=== PATIENT | female | born 1995 | race Caucasian/White ===

== ENCOUNTER → 2018-01-05 19:14 | Outpatient (CLI) | payer MEDICAID, SELFPAY ==
[2018-01-05 22:27] LABS: Chlamydia Trachomatis by PCR Negative (Negative); Neisserai gonorrhoeae by PCR Negative (Negative); Probe Check PASS; Sample Adequacy Control PASS; Specimen Processing Control PASS
[2018-01-13 12:41] LABS: HPV APTIMA, High Risk Positive (Negative); HPV Reflexed? YES, CHARGE PATIENT
== END ==
PROVIDERS: Visit Provider Nurse Practitioner Women's Health
DX: Z34.90 Encounter for supervision of normal pregnancy, unspecified, unspecified trimester (principal); Z12.4 Encounter for screening for malignant neoplasm of cervix; Z3A.00 Weeks of gestation of pregnancy not specified
CPT/HCPCS: 87491; 87591; 87624; 88175; G0145

== ENCOUNTER → 2018-01-06 16:02 | Outpatient (CLI) | payer MEDICAID, SELFPAY ==
--- NOTE | 2018-01-06 16:05 | US_ITS ---
STUDY: FIRST TRIMESTER OBSTETRICAL ULTRASOUND REASON FOR EXAM: Female, 22 years old. Evaluate dates and viability LMP: 11/13/2017 TECHNIQUE: Transvaginal PRIOR ULTRASOUND: None. FINDINGS: There is visualization of a single gestational sac in a normal intrauterine position. The mean sac diameter (MSD) measures 2.23 cm, indicating an estimated gestational age (EGA) of 7 weeks, 2 days. The gestational sac shape is within normal limits. There is a visualized yolk sac. The yolk sac measures 3.7 mm. The placenta is non-visualized. There is visualization of a live embryo. The crown-rump length (CRL) measures 1.04 cm, indicating an estimated gestational age (EGA) of 7 weeks, 1 days. There is demonstrated cardiac activity with a heart rate of 134 bpm. The estimated gestation age (EGA) by LMP is 7 weeks, 5 days. The estimated date of delivery (AJ) by LMP is 08/20/2018. The estimated gestation age (EGA) by US is 7 weeks, 2 days. The estimated date of delivery (AJ) by US is 08/23/2018. The uterus measures 8.7 x 5.7 x 5.3 cm. There is no demonstrated uterine fibroid. There is an anechoic avascular focus lateral to the gestational sac measuring 7 x 8 mm consistent with a small subchorionic hemorrhage. The cervix is closed. The right ovary measures 3.6 x 2.8 x 1.6 cm. There is a 1.8 x 2.2 x 1.1 cm right ovarian cyst. There is no visualized right adnexal mass or complex lesion. The left ovary measures 3.1 x 2.3 x 2.1 cm. There is no left ovarian cyst. There is no visualized left adnexal mass or complex lesion. There is no fluid in the cul de sac. US/Transvaginal w/Preg US IMPRESSION: Single viable intrauterine approximately 7 weeks 1 day gestational age by crown-rump length measurement. There is an anechoic avascular focus lateral to the gestational sac measuring 7 x 8 mm consistent with a small subchorionic hemorrhage. There is a 1.8 x 2.2 x 1.1 cm right ovarian cyst. There is no fluid in the cul-de-sac. Electronically Signed: Sunny Ivy MD at 17:26 EST , Service support ,
== END ==
PROVIDERS: Visit Provider Nurse Practitioner Women's Health
DX: Z34.90 Encounter for supervision of normal pregnancy, unspecified, unspecified trimester (principal); Z3A.00 Weeks of gestation of pregnancy not specified
CPT/HCPCS: 76817

== ENCOUNTER → 2018-01-29 16:00 | Outpatient (CLI) | payer MEDICAID, SELFPAY ==
[2018-01-29 16:55] LABS: Absolute Lymphocyte Count 2.17 X10^3/ul (0.83-4.51); Absolute Neutrophil Count 7.3 X10^3/uL (2.0-7.7); Basophil# 0.03 X10^3/uL; Basophil% 0.3 % (0-1); Hematocrit 39.4 % (37-47); Hemoglobin 13.2 g/dl (12.0-15.0); Lymphocyte # 2.17 X10^3/ul (4.0); Lymphocyte % 21.1 % (19-41); Mean Corp Hgb Conc 33.5 g/gl (32-36); Mean Corpuscular Hgb 29.1 pg (27.0-32.0); Monocyte# 0.69 X10^3/uL; Monocyte% 6.7 % (0-10); Neutrophil # 7.26 X10^3/uL (2.7-7.7); Neutrophil % 70.6 % (47-70); Platelet Count 268 K/mm3 (150-450); RBC Distribution Width CV 13.3 % (11.6-14.6); RBC Distribution Width SD 41.4 fl (35.1-43.9); Red Blood Count 4.53 M/mm3 (4.2-5.4); White Blood Count 10.3 K/mm3 (4.4-11.0)
[2018-01-29 16:56] LABS: POSITIVE COUNT NO; POSITIVE DIFFERENTIAL NO; POSITIVE MORPHOLOGY NO
[2018-01-30 03:11] LABS: Rapid Plasmin Reagin (RPR) NONREACTIVE (NONREACTIVE)
[2018-01-30 09:44] LABS: HIV - WCH Non-Reactive (Nonreactive); Rubella IgG 28.4 IU/mL
[2018-01-31 08:35] LABS: HEPATITIS B SURFACE AG Negative (Negative)
== END ==
PROVIDERS: Nurse Practitioner Women's Health; Visit Provider Obstetrics & Gynecology
DX: Z34.90 Encounter for supervision of normal pregnancy, unspecified, unspecified trimester (principal); Z3A.00 Weeks of gestation of pregnancy not specified
CPT/HCPCS: 36415; 85025; 86592; 86703; 86762; 86850; 86900; 87086; 87340

== ENCOUNTER → 2018-01-29 18:01 | Outpatient (CLI) | payer MEDICAID, SELFPAY | PROVIDERS: Visit Provider Obstetrics & Gynecology | DX: Z34.90 Encounter for supervision of normal pregnancy, unspecified, unspecified trimester (principal); Z3A.00 Weeks of gestation of pregnancy not specified | CPT/HCPCS: 87086 ==

== ENCOUNTER 2018-02-11 19:12 | Emergency (ER) | payer MEDICAID, SELFPAY ==
[2018-02-11 19:12] VITALS: BP 124/75; PULSE 105; RESP 16; TEMP 36.4; O2SAT 100; BMI 27.3
--- NOTE | 2018-02-11 19:26 | ED.VISSUMM ---
- ER Visit Summary Date of Service: 02/11/18 Chief Complaint: [Irwin right forearm] History of Present Illness: The patient is a 22 F [presents to the emergency department with irwin to the right forearm that occurred today while at work. 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 Patient is right-hand dominant. Patient does not want to claim this under workman's comp. Patient complains of pain.] Physical Examination: [Right forearm-there are several small first and second-degree irwin to the volar aspect of the right wrist and forearm. Patient neurovascular intact distally. Patient has normal range of motion and sensation.] Test Results: [None indicated] Emergency Department Course and Treatment: [Patient will have a clean dressing applied.] Treatment Plan: [Patient will be given a prescription for 12 Gon[place] for pain.] Disposition: [Discharged home in stable condition] Impression: [First and second-degree irwin right forearm] This note was generated with [employer] dictation software. It may contain incorrect words, spelling, and punctuation that were not noted in review of the chart prior to signing ED Disposition - Plan for ED Patient: Chief Complaint: Burn Referrals: Care Physician,No Primary [Primary Care Provider] -
--- NOTE | 2018-02-11 19:27 | ED.DEP ---
ED Disposition - Plan for ED Patient: Chief Complaint: Burn Instructions: ED Burn Thermal D 1st 2nd Dressing Prescriptions: Hydrocodone Bitart/Apap 5-325 [[place] 5/325] 1 - 2 tab PO Q4H PRN PRN 3 Days #12 tab PRN Reason: Pain Referrals: Care Physician,No Primary [Primary Care Provider] - Sherman Franklin MD [STAFF PHYSICIAN] - 5-7 Days
--- NOTE | 2018-02-11 19:45 | ED.RN ---
PER DR. BURRELL VERBAL ORDER TO APPLY BACITRACIN TO PATIENT'S RIGHT ARM BURN, ALONG WITH A TELFA AND ROLLED GAUZE. DONE BY THIS NURSE ALONG WITH NURSING INSTRUCTIONS ON BURN CARE GIVEN.
[2018-02-11 19:46] VITALS: RESP 18
== END 2018-02-11 19:46 | disposition home or self-care (01) ==
LOC: ED 19:37
PROVIDERS: Emergency Provider Emergency Medicine
DX: T23.271A Burn of second degree of right wrist, initial encounter (principal); T22.211A Burn of second degree of right forearm, initial encounter; X10.2XXA Contact with fats and cooking oils, initial encounter; Y93.89 Activity, other specified; Y92.89 Other specified places as the place of occurrence of the external cause; Y99.0 Civilian activity done for income or pay; Z72.0 Tobacco use; Z79.899 Other long term (current) drug therapy
CPT/HCPCS: 99282

== ENCOUNTER → 2018-02-13 10:40 | Outpatient (CLI) | payer MEDICAID, SELFPAY | PROVIDERS: Visit Provider Medical Genetics Clinical Genetics (M.D.) | DX: Z36.1 Encounter for antenatal screening for raised alphafetoprotein level (principal) ==

== ENCOUNTER 2018-03-22 00:44 | Emergency (ER) | payer MEDICAID, SELFPAY ==
[2018-03-22 00:47] VITALS: BP 113/60; PULSE 81; RESP 16; TEMP 36.8; O2SAT 97; BMI 29.0
--- NOTE | 2018-03-22 01:05 | ED.VISSUMM ---
- ER Visit Summary Date of Service: 03/22/18 Chief Complaint: Fell down one flight of steps History of Present Illness: The patient is a 22 F today 18 weeks . Was going down the basement and slipped on a flight of steps on her back. No LOC. Denies hitting her abdomen. Denies any vaginal bleeding. Her ABO Rh type is A+. Her due date is August 23 and she is Ab0. She sees Dr. Dejesus of GERONTOLOGY AIDE. Physical Examination: Appearing young female. Vital signs are stable afebrile. H EENT exam unremarkable atraumatic. She has no hematoma to her scalp there is no facial trauma. Pupils round reactive light. C-spine nontender trachea midline. Full range of motion to her neck. Lungs clear to auscultation bilaterally. Heart regular rhythm no murmur. Abdomen gravid uterus consistent with dates nontender without signs of trauma. No contusions no bruising or abrasions. Pelvic girdle intact. She is moving all 4 extremities. They are nontender without deformity. Neurologically she is awake and alert with no focal motor deficits. GCS of 15. Back exam has diffuse tenderness. There is no ecchymosis or bruising. She is tender over the lumbar and paralumbar parathoracic soft tissues. It is not specifically localizing. Test Results: heart tones are positive per nursing. Prior labs showing blood type is A+. Emergency Department Course and Treatment: I spoke to Dr. Ren Tate and the patient will be discharged home to follow-up with her. Treatment Plan: She will be treated with Tylenol here. Ice to all sore areas at home. Tylenol for pain. Patient does not need monitoring at this time Disposition: Discharge Impression: Acute fall down steps Back contusion 18 weeks This note was generated with [employer] dictation software. It may contain incorrect words, spelling, and punctuation that were not noted in review of the chart prior to signing ED Disposition - Plan for ED Patient: Chief Complaint: Fall Referrals: Care Physician,No Primary [Primary Care Provider] -
--- NOTE | 2018-03-22 01:09 | ED.DCSUM_ITS ---
- ER Visit Summary Date of Service: 03/22/18 Chief Complaint: Fell down one flight of steps History of Present Illness: The patient is a 22 F today 18 weeks . Was going down the basement and slipped on a flight of steps on her back. No LOC. Denies hitting her abdomen. Denies any vaginal bleeding. Her ABO Rh type is A+ . Her due date is August 23 and she is Ab0. She sees Dr. Dejesus of WRAPPING CLERK. Physical Examination: Appearing young female. Vital signs are stable afebrile. H EENT exam unremarkable atraumatic. She has no hematoma to her scalp there is no facial trauma. Pupils round reactive light. C-spine nontender trachea midline. Full range of motion to her neck. Lungs clear to auscultation bilaterally. Heart regular rhythm no murmur. Abdomen gravid uterus consistent with dates nontender without signs of trauma. No contusions no bruising or abrasions. Pelvic girdle intact. She is moving all 4 extremities. They are nontender without deformity. Neurologically she is awake and alert with no focal motor deficits. GCS of 15. Back exam has diffuse tenderness. There is no ecchymosis or bruising. She is tender over the lumbar and paralumbar parathoracic soft tissues. It is not specifically localizing. Test Results: heart tones are positive per nursing. Prior labs showing blood type is A+. Emergency Department Course and Treatment: I spoke to Dr. Ren Tate and the patient will be discharged home to follow-up with her. Treatment Plan: She will be treated with Tylenol here. Ice to all sore areas at home. Tylenol for pain. Patient does not need monitoring at this time Disposition: Discharge Impression: Acute fall down steps Back contusion 18 weeks This note was generated with [employer] dictation software. It may contain incorrect words, spelling, and punctuation that were not noted in review of the chart prior to signing ED Disposition - Plan for ED Patient: Chief Complaint: Fall Referrals: Care Physician,No Primary [Primary Care Provider] -
--- NOTE | 2018-03-22 01:09 | ED.DEP ---
ED Disposition - Plan for ED Patient: Disposition: Home or Assisted Living Chief Complaint: Fall Instructions: ED Contusion Back Referrals: Rosalva Novoa MD [STAFF PHYSICIAN] - As Needed Additional Instructions: Ice to all sore areas. Tylenol for pain. Follow-up with Dr. Ren Tate as scheduled.
[2018-03-22 01:25] VITALS: BP 125/88; PULSE 87; RESP 16; O2SAT 97
== END 2018-03-22 01:26 | disposition home or self-care (01) ==
PROVIDERS: Emergency Provider Emergency Medicine
DX: O9A.212 Injury, poisoning and certain other consequences of external causes complicating pregnancy, second trimester (principal); S30.0XXA Contusion of lower back and pelvis, initial encounter; W10.9XXA Fall (on) (from) unspecified stairs and steps, initial encounter; Y93.9 Activity, unspecified; Y92.9 Unspecified place or not applicable; Y99.9 Unspecified external cause status; O99.332 Smoking (tobacco) complicating pregnancy, second trimester; Z3A.18 18 weeks gestation of pregnancy
CPT/HCPCS: 99282

== ENCOUNTER → 2018-03-30 07:57 | Outpatient (CLI) | payer MEDICAID, SELFPAY ==
--- NOTE | 2018-03-30 08:00 | US_ITS ---
STUDY: SECOND AND THIRD TRIMESTER OBSTETRICAL ULTRASOUND REASON FOR EXAM: Female, 23 years old. 2nd trimester complete OB ultrasound with anatomy survey and biometrics. LMP: 11/13/2017. GA (LMP) 19 week 4 day. AJ 08/20/2018. TECHNIQUE: Transabdominal pelvic ultrasound of . PRIOR ULTRASOUND: 01/06/2018. FINDINGS: There is a single intrauterine fetus. The fetus is in a cephalic presentation. There is demonstrated cardiac activity with a heart rate of 160 bpm. There is a normal amniotic fluid volume. The largest amniotic fluid pocket measures 6.95 cm. The amniotic fluid volume. The placenta is anterior, not low-lying There are Grade 1 placental changes. Small venous dye 13 x 12 mm. The cervix measures 3.2 in length. Closed. BIOMETRY: BPD: 4.3: 19 weeks, 1 days HC: 16.5: 19 weeks, 2 days AC: 13.9: 19 weeks, 3 days FL: 3.1: 19 weeks, 4 days CI: 75 FL/BPD: 72 FL/AC: 22 HC/AC: 1.19 age by current US: 19 weeks, 3 days. AJ by current US: 08/21/2018. Estimated weight: 290 grams, +/- 42 grams, 35 %. ANATOMY: Gender: Female Cranium: Normal lateral ventricles. Normal choroid plexus. Normal cerebellum. Normal cisterna magna. Normal face, nose and lips. Chest: Normal 4-chamber heart. The outflow tracts are not visualized. Abdomen/Pelvis: Normal diaphragm. Normal stomach. Normal abdominal wall. Normal cord insertion. Normal 3 vessel cord. Normal kidneys. Normal bladder. Spine: Normal cervical spine. Normal thoracic spine. Normal lumbar spine. Normal sacrum. Extremities: Normal bilateral upper extremities. Normal bilateral lower extremities. US/OB Anatomy Scan IMPRESSION: There is a single live intrauterine gestation with appropriate cardiac activity, normal amniotic fluid volume, with no evidence of placenta previa. Measurements on today's study are concordant with expected dates within 1 day. The anatomic survey is satisfactory, and normal. No acute or maternal abnormality is evident. Electronically Signed: Uriah Zamarripa, at 8:47 EDT Tel , Service support ,
== END ==
PROVIDERS: Visit Provider Nurse Practitioner Women's Health
DX: Z34.90 Encounter for supervision of normal pregnancy, unspecified, unspecified trimester (principal)
CPT/HCPCS: 76805

== ENCOUNTER → 2018-03-31 08:09 | Outpatient (CLI) | payer MEDICAID, SELFPAY | PROVIDERS: Visit Provider Obstetrics & Gynecology | DX: Z36.82 Encounter for antenatal screening for nuchal translucency (principal) | CPT/HCPCS: 36415 ==

== ENCOUNTER → 2018-05-22 12:23 | Outpatient (CLI) | payer MEDICAID, SELFPAY ==
[2018-05-22 12:48] LABS: Absolute Lymphocyte Count 1.75 X10^3/ul (0.83-4.51); Absolute Neutrophil Count 7.7 X10^3/uL (2.0-7.7); Basophil# 0.02 X10^3/uL; Basophil% 0.2 % (0-1); Eosinophil# 0.04 X10^3/uL; Eosinophils% 0.4 % (0-5); Hematocrit 33.7 % (37-47); Hemoglobin 11.4 g/dl (12.0-15.0); Lymphocyte # 1.75 X10^3/ul (4.0); Lymphocyte % 17.5 % (19-41); Mean Corp Hgb Conc 33.8 g/gl (32-36); Mean Corpuscular Hgb 28.9 pg (27.0-32.0); Mean Corpuscular Volume 85.5 fL (81-99); Mean Platelet Vol. 9.7 fl (6.2-12.0); Monocyte# 0.44 X10^3/uL; Monocyte% 4.4 % (0-10); Neutrophil # 7.71 X10^3/uL (2.7-7.7); Neutrophil % 77.2 % (47-70); Platelet Count 230 K/mm3 (150-450); RBC Distribution Width SD 39.9 fl (35.1-43.9); Red Blood Count 3.94 M/mm3 (4.2-5.4)
[2018-05-22 12:49] LABS: POSITIVE COUNT NO; POSITIVE DIFFERENTIAL NO; POSITIVE MORPHOLOGY NO
[2018-05-22 13:01] LABS: Glucose Challenge Gest 1H 50g 127 mg/dL (70-140)
== END ==
PROVIDERS: Visit Provider Obstetrics & Gynecology
DX: Z34.90 Encounter for supervision of normal pregnancy, unspecified, unspecified trimester (principal)
CPT/HCPCS: 36415; 82950; 85025; 86850; 86900

== ENCOUNTER → 2018-07-31 17:01 | Outpatient (CLI) | payer MEDICAID, SELFPAY ==
[2018-07-31 19:04] LABS: Group B Strep DNA By PCR POSITIVE (Negative); Probe Check PASS
[2018-07-31 19:38] LABS: Chlamydia Trachomatis by PCR Negative (Negative); Neisserai gonorrhoeae by PCR Negative (Negative); Probe Check PASS; Sample Adequacy Control PASS; Specimen Processing Control PASS
== END ==
PROVIDERS: Visit Provider Nurse Practitioner Women's Health
DX: Z34.90 Encounter for supervision of normal pregnancy, unspecified, unspecified trimester (principal); Z3A.00 Weeks of gestation of pregnancy not specified
CPT/HCPCS: 87491; 87591; 87653

== ENCOUNTER 2018-08-18 17:10 | Outpatient (CLI) | payer MEDICAID, SELFPAY ==
[2018-08-18 18:20] VITALS: BMI 37.1
[2018-08-18 18:50] LABS: Protein, Urine (Random) 69.7 mg/dL (<11.9); Protein:Creat Ratio 1130 mg/g CRE (0-200)
[2018-08-18] MEDS: Nalbuphine 10 MG/ML Ampul IM (20:31)
[2018-08-18 20:35] LABS: Hematocrit 35.3 % (37-47); Hemoglobin 11.7 g/dl (12.0-15.0); Mean Corp Hgb Conc 33.1 g/gl (32-36); Mean Corpuscular Hgb 27.1 pg (27.0-32.0); Mean Corpuscular Volume 81.7 fL (81-99); Platelet Count 205 K/mm3 (150-450); RBC Distribution Width CV 14.9 % (11.6-14.6); RBC Distribution Width SD 43.4 fl (35.1-43.9); Red Blood Count 4.32 M/mm3 (4.2-5.4); White Blood Count 13.8 K/mm3 (4.4-11.0)
[2018-08-18 20:41] LABS: International Normalized Ratio 0.9; Partial Thromboplast Time 28.5 Seconds (24.1-36.2); Prothrombin Time (Protime)PT. 12.4 SECONDS (11.7-14.9); Scan Indicated on CBC? Y/N NO
[2018-08-18 20:50] LABS: AST(SGOT) 11 U/L (15-37); Alanine Aminotransfer ALT/SGPT 12 U/L (13-56); Creatinine, Serum 0.57 mg/dL (0.55-1.02); EST Glomerular Filtration Rate 140 mL/min (>60); Est Glom Filt Rate - Afr Amer 169 mL/min (>60)
[2018-08-18 21:12] LABS: LDH 169 U/L (84-246)
--- NOTE | 2018-08-19 02:46 | OB.TRI.NOTE ---
- Problem List (1) False labor Status: Acute History of Present Illness Date of Service: 08/18/18 Was patient seen by the physician?: No Reason For Visit: R/O LABOR Date of Service: 08/18/18 History of Present Illness: co ctx Allergies No Known Allergies Allergy (Verified 08/18/18 08:17) - Pertinent Past Medical History Medical History: Past Medical History (Last Reviewed 08/18/18 @ 08:17 by Ronit Morrison) HSV (herpes simplex virus) infection Surgical History: Past Surgical History (Last Reviewed 08/10/18 @ 11:08 by Crystal Martinez) History of tonsillectomy NST - FHR Rate Baby A Baseline: 120 Variability:: Moderate Accelerations:: 15 x 15 Decelerations:: None NST Reactive:: Yes FHR Category:: Category I Uterine Activity:: q2-5 Impression/Plan 3 cm no cervical change after 4 hours, plan dc home fu the end of the week. reactive nst
== END 2018-08-18 22:40 | disposition home or self-care (01) ==
LOC: WPOUT 17:30 → WP 17:31
PROVIDERS: Referring Provider Obstetrics & Gynecology; Visit Provider Obstetrics & Gynecology
DX: O47.9 False labor, unspecified (principal); O98.519 Other viral diseases complicating pregnancy, unspecified trimester; B00.9 Herpesviral infection, unspecified; Z3A.00 Weeks of gestation of pregnancy not specified
CPT/HCPCS: 36415; 59025; 59050; 82565; 82570; 83615; 84156; 84450; 84460; 84550; 85027; 85610; 85730; 87086; 96372; 99218; G0378

== ENCOUNTER 2018-08-19 00:10 | Inpatient (IN) | payer MEDICAID, SELFPAY ==
[2018-08-19 00:29] VITALS: BMI 36.6
[2018-08-19] MEDS: Lactated Ringers 1,000 ML 50 ML IV (00:45)
[2018-08-19 00:54] LABS: Hematocrit 36.2 % (37-47); Hemoglobin 12.1 g/dl (12.0-15.0); Mean Corp Hgb Conc 33.4 g/gl (32-36); Mean Corpuscular Volume 80.8 fL (81-99); Mean Platelet Vol. 11.1 fl (6.2-12.0); Platelet Count 219 K/mm3 (150-450); RBC Distribution Width CV 14.9 % (11.6-14.6); RBC Distribution Width SD 43.2 fl (35.1-43.9); Red Blood Count 4.48 M/mm3 (4.2-5.4); White Blood Count 15.3 K/mm3 (4.4-11.0)
[2018-08-19 00:55] LABS: Scan Indicated on CBC? Y/N NO
[2018-08-19] MEDS: morphine 10 MG/ML Syringe 6 MG IV (01:47)
[2018-08-19] MEDS: Oxytocin 30 units/NS 500 ml 30 UNITS/500 ML IV.SOLN 334 UNITS IV (01:50)
[2018-08-19] MEDS: Oxytocin 30 units/NS 500 ml 30 UNITS/500 ML IV.SOLN 167 UNITS IV (02:20)
--- NOTE | 2018-08-19 02:32 | HP.PCM_ITS ---
- Problem List (1) GBS (group B Streptococcus carrier), +RV culture, currently Status: Acute Comment: PCN in labor (2) Status: Acute Qualifiers: Comment: (3) Contraception management Status: Acute Qualifiers: Comment: Mirena IUD PP (4) Abnormal Pap smear of cervix Status: Acute Qualifiers: Comment: Repeat 6 week postpartem (5) screening encounter Status: Acute Comment: NT done 02/13/18 (6) Tobacco use Status: Acute Comment: Enc to quit (7) Genital herpes Status: Acute Qualifiers: Comment: Plan suppressive therapy 36 weeks acycliovir (8) Supervision of normal Status: Acute Qualifiers: Comment: PRR AJ 08/23/18 Girl Angelika Luis History Date of Admission: 08/19/18 Final AJ: 08/24/18 Gestational age: 39 Weeks and 2 Days History of this : This is a 23 year-old, , at 39 weeks gestational age presents IAL delivered precipitously. Medical History: Medical History (Last Reviewed 08/18/18 @ 08:17 by Ronit Morrison) HSV (herpes simplex virus) infection B00.9 Surgical History: Surgical History (Last Reviewed 08/10/18 @ 11:08 by Crystal Martinez) History of tonsillectomy Z98.890, Z90.89 Allergies No Known Allergies Allergy (Verified 08/18/18 08:17) Home Medications: Home Medications vitamin,calcium,shidatag-rubt-jnbas acid tablet 1 tab PO QDAY 01/05/18 Ranitidine HCl [Acid Control] 150 mg PO BID 08/19/18 Valacyclovir HCl [Valacyclovir] 500 mg PO DAILY 08/19/18 Smoking Status: Current every day smoker History Past Pregnancies: Past Pregnancies Delivery Date Name GA/Weeks Outcome Route Weight Gender Labor Length Anesthesia Delivery Location Provider FOB Labs: Mom's Labs & Results 08/19/18 08/19/18 00:44 00:44 WBC 15.3 H RBC 4.48 Hgb 12.1 Hct 36.2 L MCV 80.8 L MCH 27.0 MCHC 33.4 RDW 14.9 H RDW Differential 43.2 Plt Count 219 MPV 11.1 Blood Type A POSITIVE Antibody Screen NEGATIVE Course Did the patient receive Yes care? Labs Blood Type: A RH: POSITIVE RPR/VDRL/Syphilis Nonreactive Rubella status Immune HbSAg Negative Date Done: 01/29/18 Chlamydia Negative Gonorrhea Negative HIV/AIDS Non-Reactive Group B Strep: Positive Other Lab Procedures/Results/ HPV+ Comments: Current Obstetrical History Gestational Diabetes No Incompetent Cervix No Infertility No IUGR No Macrosomia No Hypertension/Pre-eclampsia No Placenta Previa/Abruption No PTL/PROM No Uterine anomaly No Oligohydramnios No Polyhydramnios No Multiple gestation No Past Medical History Asthma No Diabetes No Hypertension No Heart disease No Mitral valve prolapse No Neurologic/Seizure disorder/ No Migraines Kidney disease No Liver disease No Varicosities No Clotting disorders/Hx of DVT No Thyroid Dysfunction No Other medical diseases No Psychiatric disorders No Major trauma No Abnormal PAP smear No Sleep apnea No Mammogram in the last 2 years No Social History Marital Status: SINGLE Alleged father Jus Hare Hx Smoking Yes Smoking Status Current every day smoker Expected Infant Delivery Method: Spontaneous Vaginal Review of Systems Constitutional: Denies: Fever, Malaise Eyes: Denies: Blurred vision, Vision Change HEENT: Denies: Head Aches, Visual Changes Cardiovascular: Denies: Chest Pain, Palpitations Respiratory: Denies: Cough, Shortness of Breath, Wheezing Gastrointestinal: Denies: Abdominal Pain, Diarrhea, Nausea, Vomiting Genitourinary: Denies: Dysuria, Hematuria Musculoskeletal: Denies: Joint Pain, Muscle pain Skin: Denies: Lesions, Rash Neurological: Denies: Blurred vision, Focal weakness, Headaches Psychiatric: Denies: Anxiety, Depression Endocrine: Denies: Heat/ Cold Intolerance Hematologic/ Lymphatic: Denies: Easy Bruising, Easy Bleeding Physical Exam General: Alert, Cooperative, No apparent distress HEENT: Atraumatic, Normocephalic. Negative for: Thyromegaly, Lymphadenopathy Cardiovascular: Regular rate Lungs: Normal air movement Abdomen: Soft, Non Tender, Gravid Neurological: Deep Tendon Reflexes 2+/4 and Symmetrical, Neuro grossly intact. Negative for: Clonus ASSISTANT PROFESSOR OF ART: Normal external genitalia. Negative for: Vulvar lesions Estimated gestational size: Appropriate for gestational size Presentation: Cephalic Cervix Dilation (cm): 5.5 Assessment/Plan All Active Problems (Last Reviewed 08/18/18 @ 08:17 by Ronit Morrison) GBS (group B Streptococcus carrier), +RV culture, currently (Acute) (Acute) Contraception management (Acute) Abnormal Pap smear of cervix (Acute) screening encounter (Acute) Tobacco use (Acute) Genital herpes (Acute) Supervision of normal (Acute) This is a 23 year-old, at 39 weeks gestational age. Patient presents ial srom Pain management: pudendal GBS positive plan IV PCN Management of any complications: none I have reviewed the [facility] and made any clinically relevant updates.
--- NOTE | 2018-08-19 02:35 | PCM.OB.VAG ---
- Problem List (1) GBS (group B Streptococcus carrier), +RV culture, currently Status: Acute Comment: PCN in labor (2) Status: Acute Qualifiers: Comment: (3) Contraception management Status: Acute Qualifiers: Comment: Mirena IUD PP (4) Abnormal Pap smear of cervix Status: Acute Qualifiers: Comment: Repeat 6 week postpartem (5) screening encounter Status: Acute Comment: NT done 02/13/18 (6) Tobacco use Status: Acute Comment: Enc to quit (7) Genital herpes Status: Acute Qualifiers: Comment: Plan suppressive therapy 36 weeks acycliovir (8) Supervision of normal Status: Acute Qualifiers: Comment: PRR AJ 08/23/18 Girl Angelika FOB Toby Vaginal Delivery Maternal Presentation: Active Labor 23-year-old at 39 weeks 2 days presents in active labor and delivers precipitously Amniotic Membrane Rupture Type: Spontaneous at home Amniotic Fluid Description: Moderate meconium Final AJ: 08/24/18 Gestational age: 39 Weeks and 2 Days Date of Procedure: 08/19/18 Pre-Operative Diagnosis: Active labor Post-Operative Diagnosis: same Surgery/ Procedure Performed: Spontaneous Vaginal Delivery Type of Anesthesia: Epidural Description of Procedure: Patient began pushing after proceeding to complete precipitously. Pudendal block was placed vaginally by identifying the initial spines bilaterally and injecting 2 cm medial and posterior to them into the sacrospinous ligament 10 cc of 1% lidocaine bilaterally without complication. And there were recurrent heart rate decelerations noted and therefore a midline episiotomy was cut after injecting with additional 1% lidocaine. And delivered the head in the JOSE presentation. The head was delivered atraumatically and a tight nuchal cord ?1 was identified and after delivering the shoulder the cord was clamped and cut. The anterior and posterior shoulders delivered without complication followed by the rest of the infant and the was placed on the maternal abdomen. Delayed cord clamping was employed for approximately 60 seconds. Cord was clamped and cut and gentle traction was applied to the cord and the placenta delivered spontaneously immediately following it was noted to be intact with three-vessel cord. The perineum and vagina were inspected and noted to have no extension of the midline episiotomy and so it was overall a second-degree perineal laceration that was repaired in the usual fashion with 3-0 Vicryl repeat. EBL was 400 cc. Patient and tolerated delivery well. Presentation: JOSE Placental Delivery Description: Spontaneous Placenta Disposition: [facility] Cord Vessel Description: 3 Vessels Cord Entanglement: Around neck x 1, tight Estimated Blood Loss: 400 Infant A gender: Female Episiotomy Description: Midline Laceration: Perineal Extension/lac, 2nd degree Medications given after delivery: IV Pitocin Complications: None
--- NOTE | 2018-08-19 02:38 | OP.PCM_ITS ---
- Problem List (1) GBS (group B Streptococcus carrier), +RV culture, currently Status: Acute Comment: PCN in labor (2) Status: Acute Qualifiers: Comment: (3) Contraception management Status: Acute Qualifiers: Comment: Mirena IUD PP (4) Abnormal Pap smear of cervix Status: Acute Qualifiers: Comment: Repeat 6 week postpartem (5) screening encounter Status: Acute Comment: NT done 02/13/18 (6) Tobacco use Status: Acute Comment: Enc to quit (7) Genital herpes Status: Acute Qualifiers: Comment: Plan suppressive therapy 36 weeks acycliovir (8) Supervision of normal Status: Acute Qualifiers: Comment: PRR AJ 08/23/18 Girl Angelika FOB Toby Vaginal Delivery Maternal Presentation: Active Labor 23-year-old at 39 weeks 2 days presents in active labor and delivers precipitously Amniotic Membrane Rupture Type: Spontaneous at home Amniotic Fluid Description: Moderate meconium Final AJ: 08/24/18 Gestational age: 39 Weeks and 2 Days Date of Procedure: 08/19/18 Pre-Operative Diagnosis: Active labor Post-Operative Diagnosis: same Surgery/ Procedure Performed: Spontaneous Vaginal Delivery Type of Anesthesia: Epidural Description of Procedure: Patient began pushing after proceeding to complete precipitously. Pudendal block was placed vaginally by identifying the initial spines bilaterally and injecting 2 cm medial and posterior to them into the sacrospinous ligament 10 cc of 1% lidocaine bilaterally without complication. And there were recurrent feta l heart rate decelerations noted and therefore a midline episiotomy was cut after injecting with additional 1% lidocaine. And delivered the head in the JOSE presentation. The head was delivered atraumatically and a tight nuchal cord ?1 was identified and after delivering the shoulder the cord was clamped and cut. The anterior and posterior shoulders delivered without complication followed by the rest of the infant and the infant was placed on the maternal abdomen. Delayed cord clamping was employed for approximately 60 seconds. Cord was clamped and cut and gentle traction was applied to the cord and the placenta delivered spontaneously immediately following it was noted to be intact with three-vessel cord. The perineum and vagina were inspected and noted to have no extension of the midline episiotomy and so it was overall a second-degree perineal laceration that was repaired in the usual fashion with 3-0 Vicryl repeat. EBL was 400 cc. Patient and infant tolerated delivery well. Presentation: JOSE Placental Delivery Description: Spontaneous Placenta Disposition: [facility] Cord Vessel Description: 3 Vessels Cord Entanglement: Around neck x 1, tight Estimated Blood Loss: 400 A gender: Female Episiotomy Description: Midline Laceration: Perineal Extension/lac, 2nd degree Medications given after delivery: IV Pitocin Complications: None
[2018-08-19] MEDS: Naproxen 250 MG Tablet PO ×2 (03:28→13:36)
[2018-08-19] MEDS: 0.9% Saline Lock 10 ML Syringe IV (03:29)
[2018-08-19] MEDS: Acetaminophen 500 MG Tablet 1000 MG PO (07:48)
[2018-08-19 07:56] VITALS: BP 121/66; PULSE 103; RESP 20; TEMP 36.6
[2018-08-19 13:30] VITALS: BP 122/75; PULSE 96; RESP 18; TEMP 37
[2018-08-19] MEDS: oxyCODONE 5 MG Tablet PO ×3 (14:30→19:26)
[2018-08-19 17:00] VITALS: BP 117/74; PULSE 98; RESP 18; TEMP 36.7
[2018-08-19 20:20] VITALS: BP 131/77; PULSE 92; RESP 18; TEMP 36.7
[2018-08-20] MEDS: oxyCODONE 5 MG Tablet PO ×4 (00:51→21:52)
[2018-08-20] MEDS: Senna/Docusate Sodium 1 Tablet PO (00:51)
[2018-08-20 02:45] VITALS: BP 121/71; PULSE 96; RESP 18; TEMP 36.4
[2018-08-20 07:40] VITALS: BP 131/81; PULSE 89; RESP 18; TEMP 36.6; O2SAT 96
--- NOTE | 2018-08-20 07:47 | PCM.PN.OB ---
Subjective: Doing well. Pain controlled with Rx med. No SOB, CP - Physical Exam General: Alert, Oriented x3 Abdomen: Soft, Non Tender, - - FF below U Vital Signs Temp Pulse Resp BP 97.6 F L 96 18 121/71 H 08/20/18 02:45 08/20/18 02:45 08/20/18 02:45 08/20/18 02:45 Oxygen Delivery Method Room Air Weight: 191 lb Body Mass Index (BMI) 36.6 Intake and Output for Last 24 Hours 08/18/18 08/19/18 08/20/18 23:59 23:59 23:59 Output Total 200 / 200 Balance -200 / -200 Medical Necessity - Tobacco Use Smoking Status: Current every day smoker Assessment/Plan All Active Problems (Last Reviewed 08/18/18 @ 08:17 by Ronit Morrison) False labor (Acute) GBS (group B Streptococcus carrier), +RV culture, currently (Acute) (Acute) Contraception management (Acute) Abnormal Pap smear of cervix (Acute) screening encounter (Acute) Tobacco use (Acute) Genital herpes (Acute) Supervision of normal (Acute) episiotomy PPD #1: Routine care. Reviewed available meds for pain control. Plans home tomorrow.
[2018-08-20 13:35] VITALS: BP 123/72; PULSE 100; RESP 18; TEMP 36.7; O2SAT 98
[2018-08-20] MEDS: Naproxen 250 MG Tablet PO (19:41)
[2018-08-20 19:45] VITALS: BP 124/80; PULSE 100; RESP 18; TEMP 36.7; O2SAT 97
[2018-08-21 02:00] VITALS: BP 127/84; PULSE 90; RESP 18; TEMP 36.6; O2SAT 97
[2018-08-21] MEDS: oxyCODONE 5 MG Tablet PO ×3 (02:51→09:18)
[2018-08-21] MEDS: Naproxen 250 MG Tablet PO (06:42)
--- NOTE | 2018-08-21 07:32 | DCINST_ITS ---
Discharge Diet: No Restrictions Discharge Activity: Return to Normal Activity, May not drive while taking narcotic pain medications., May Shower May resume sexual activity in: 4-6 weeks Call your doctor if your incision/area has: Continuous Slow Oozing, Sudden Increased Bleeding, Increased Pain/ Swelling, Increased Redness, Foul Smelling Discharge Additional Instructions: If you experience any of the following, contact your healthcare provider. * Bleeding that soaks a pad every hour for 2 hours * Fever 100.4 or higher * Unrelieved incision or abdominal pain * Swelling, redness, discharge or bleeding from your incision or episiotomy site * Your incision begins to separate * Problems urinating (including inability to urinate or burning while urinating). * Visual changes * Severe headache * Flu-like symptoms * Pain or redness in one of both of your breasts * Pain, warmth, tenderness or swelling in your legs, especially the calf area * Frequent nausea and vomiting * Symptoms of depression or anxiety If you experience any of the following, call 911 or go to the nearest Emergency Room. * Chest pain * Problems breathing * Seizure activity * Partial or complete paralysis of a body part, slurred speech, weakness or drooping of the face, or a sudden inability to walk or hold your balance Allergies/Adverse Reactions: Allergies No Known Allergies Allergy (Verified 08/18/18 08:17) Medications to take at Discharge vitamin,calcium,agmeskky-ilst-tnchq acid tablet 1 tab PO QDAY 01/05/18 Ranitidine HCl [Acid Control] 150 mg PO BID 08/19/18 Valacyclovir HCl [Valacyclovir] 500 mg PO DAILY 08/19/18 Naproxen [Naprosyn] 250 - 500 mg PO Q8H PRN PRN #30 tablet 08/21/18 Oxycodone HCl/Acetaminophen [Percocet 5-325] 1 - 2 tablet PO Q4H PRN PRN 7 Days #15 tablet 08/21/18 The following prescriptions were given: Oxycodone HCl/Acetaminophen [Percocet 5-325] 1 - 2 tablet PO Q4H PRN PRN 7 Days #15 tablet PRN Reason: Pain Naproxen [Naprosyn] 250 - 500 mg PO Q8H PRN PRN #30 tablet PRN Reason: MILD PAIN Please Follow Up With: Rosalva Novoa MD - [phone] When: Call to make an appointment with your doctor in 6 weeks. If you had elevated Blood pressure or 4th degree laceration you will need to be seen in 2 weeks. Primary Care Physician: Care Physician,No Primary [Primary Care Provider] - Test Results: Test results from this visit will be discussed in further detail at your follow- up appointment, if applicable.
--- NOTE | 2018-08-21 07:32 | PCM.PN.OB ---
Subjective: doing well pain controlled with motrin and oxy - Physical Exam General: Alert, Oriented x3 Vital Signs Temp Pulse Resp BP Pulse Ox 97.9 F 90 18 127/84 H 97 08/21/18 02:00 08/21/18 02:00 08/21/18 02:00 08/21/18 02:00 08/21/18 02:00 Oxygen Delivery Method Room Air Weight: 191 lb Body Mass Index (BMI) 36.6 Intake and Output for Last 24 Hours 08/19/18 08/20/18 08/21/18 23:59 23:59 23:59 Output Total 200 / 200 Balance -200 / -200 Medical Necessity - Tobacco Use Smoking Status: Current every day smoker Assessment/Plan All Active Problems (Last Reviewed 08/18/18 @ 08:17 by Ronit Morrison) False labor (Acute) GBS (group B Streptococcus carrier), +RV culture, currently (Acute) (Acute) Contraception management (Acute) Abnormal Pap smear of cervix (Acute) screening encounter (Acute) Tobacco use (Acute) Genital herpes (Acute) Supervision of normal (Acute) s/p routine care dc home today
[2018-08-21 09:10] VITALS: BP 120/77; PULSE 100; RESP 16; TEMP 36.7; O2SAT 98
[2018-08-21] MEDS: Senna/Docusate Sodium 1 Tablet PO (09:18)
[2018-08-21 12:30] VITALS: BP 129/79; PULSE 102; RESP 18; TEMP 36.6; O2SAT 99
== END 2018-08-21 12:45 | disposition home or self-care (01) | DRG 560 ==
PROVIDERS: Admitting Provider Obstetrics & Gynecology; Visit Provider Obstetrics & Gynecology
DX: O99.824 Streptococcus B carrier state complicating childbirth (principal); O69.1XX0 Labor and delivery complicated by cord around neck, with compression, not applicable or unspecified; O98.32 Other infections with a predominantly sexual mode of transmission complicating childbirth; A60.00 Herpesviral infection of urogenital system, unspecified; O62.3 Precipitate labor; O77.0 Labor and delivery complicated by meconium in amniotic fluid; O76 Abnormality in fetal heart rate and rhythm complicating labor and delivery; O99.334 Smoking (tobacco) complicating childbirth; Z3A.39 39 weeks gestation of pregnancy; Z37.0 Single live birth
CPT/HCPCS: 36415; 59025; 59050; 82565; 82570; 83615; 84156; 84450; 84460; 84550; 85027; 85610; 85730; 86850; 86900; 87086; 87088; 96372; 99218; J7120; A4216; G0378

== ENCOUNTER → 2018-10-05 13:46 | Outpatient (CLI) | payer MEDICAID, SELFPAY ==
[2018-10-05 09:09] VITALS: BMI 36.6
[2018-10-05 16:44] LABS: Chlamydia Trachomatis by PCR Negative (Negative); Neisserai gonorrhoeae by PCR Negative (Negative); Probe Check PASS; Sample Adequacy Control PASS; Specimen Processing Control PASS
[2018-10-08 14:49] LABS: HPV APTIMA, High Risk Negative (Negative)
[2018-10-08 14:50] LABS: HPV Reflexed? NOT INDICATED
== END ==
PROVIDERS: Referring Provider Nurse Practitioner Women's Health; Visit Provider Nurse Practitioner Women's Health
DX: Z12.4 Encounter for screening for malignant neoplasm of cervix (principal); Z11.3 Encounter for screening for infections with a predominantly sexual mode of transmission
CPT/HCPCS: 87491; 87591; 87624; 88175; G0145

== ENCOUNTER 2018-12-09 21:22 | Emergency (ER) | payer MEDICAID, SELFPAY ==
[2018-10-21 09:11] VITALS: BMI 36.6
[2018-12-09 21:23] VITALS: BP 133/75; PULSE 86; RESP 16; TEMP 35.9; O2SAT 99; BMI 33.7
--- NOTE | 2018-12-09 22:05 | ED.VISSUMM ---
- ER Visit Summary Date of Service: 12/09/18 Chief Complaint: Neck pain History of Present Illness: The patient is a 23 F presenting for evaluation secondary to neck pain. Patient reports that over the last 3 days she had a gradual onset of left-sided neck pain. This goes from her neck down to her shoulder. It is not associated with any sort of numbness or weakness. Patient denies any injury associated with it. It is worse with movement and does not radiate down her arm. She states that she had been dealing with a mild illness this weekend associated with a low-grade fever and a cough. She denies any other infectious signs or symptoms such as ear pain or sore throat. Review of systems otherwise negative. Physical Examination: Vital signs within normal limits. Well-nourished female no acute distress. TMs are clear normal oropharynx no evidence of lymph node enlargement. Patient is tender over her trapezius muscle down into her rhomboids. She has limited range of motion of the neck secondary to pain. No pain in the midline. 5 out of 5 strength at the shoulder elbow wrist and hand with normal sensation over all dermatomes and bilaterally symmetric brachioradialis biceps and triceps reflexes normal distal pulses. Test Results: None indicated Emergency Department Course and Treatment: Patient presented with neck pain. Physical exam seems consistent with torticollis. There is no evidence of pharyngitis otitis or neurologic compromise. I do not believe that further workup is indicated. Patient will be treated with lidocaine patches and a short course of Valium Disposition: Discharge Impression: 1. Torticollis This note was generated with [employer] dictation software. It may contain incorrect words, spelling, and punctuation that were not noted in review of the chart prior to signing ED Disposition - Plan for ED Patient: Disposition: Home or Assisted Living Diagnosis: Torticollis Instructions: ED Wry Neck Ch Prescriptions: Diazepam [Valium] 2 mg PO TID PRN PRN #10 tab PRN Reason: Vertigo Lidocaine [Lidoderm] 1 ea TP DAILY #10 adh..patch Referrals: Hi Purcell III, MD [STAFF PHYSICIAN] - As Needed
[2018-12-09] MEDS: Lidocaine 5% Patch 1 PATCH TOPICAL (22:16)
[2018-12-09 22:37] VITALS: RESP 18
[2018-12-09] MEDS: diazePAM 2 MG Tablet PO (22:37)
--- NOTE | 2018-12-09 22:38 | ED.RN ---
PT GIVEN 2MG VALIUM TO TAKE WHEN SHE GETS HOME.
== END 2018-12-09 22:38 | disposition home or self-care (01) ==
PROVIDERS: Emergency Provider Emergency Medicine
DX: M43.6 Torticollis (principal); R05 Cough; Z72.0 Tobacco use
CPT/HCPCS: 99283

== ENCOUNTER → 2019-05-10 14:53 | Outpatient (CLI) | payer MEDICAID, SELFPAY ==
[2019-03-31 15:55] VITALS: BMI 34.0
--- NOTE | 2019-05-10 14:56 | RAD_ITS ---
STUDY: X-RAY - CERVICAL SPINE REASON FOR EXAM: Female, 24 years old. Neck pain and headache TECHNIQUE: 3 view(s) of the cervical spine were obtained. COMPARISON: None FINDINGS: Normal anterior atlantoaxial articulation. Normal odontoid process. Normal cervical lordosis. Normal vertebral bodies and endplates. Normal disc space heights. Normal visualized intervertebral neuroforamina. The soft tissue structures are unremarkable. RAD/Cerv Spine 2 or 3 Views IMPRESSION: Normal x-ray examination of the visualized cervical spine. Electronically Signed: Leif Douglas MD at 15:45 EDT , Service support ,
--- NOTE | 2019-05-10 14:56 | RAD_ITS ---
STUDY: X-RAY - LUMBAR SPINE REASON FOR EXAM: Female, 24 years old. Low back pain TECHNIQUE: 3 view(s) of the lumbar spine were obtained. COMPARISON: None FINDINGS: Normal lumbar lordosis. There is no substantial scoliosis. There is a normal alignment of the vertebrae. Normal vertebral bodies and endplates. Normal disc space heights. The soft tissue structures are unremarkable. RAD/Lumbar Spine 2 or 3 Views IMPRESSION: Normal x-ray examination of the lumbar spine. Electronically Signed: Leif Douglas MD at 15:45 EDT , Service support ,
== END ==
PROVIDERS: Referring Provider Anesthesiology Pain Medicine; Visit Provider Anesthesiology Pain Medicine
DX: M54.2 Cervicalgia (principal); M54.9 Dorsalgia, unspecified
CPT/HCPCS: 72040; 72100

== ENCOUNTER → 2020-09-27 16:13 | Outpatient (CLI) | payer MEDICAID, SELFPAY ==
[2019-03-31 15:55] VITALS: BMI 34.0
--- NOTE | 2020-09-27 16:25 | RAD_ITS ---
STUDY: X-RAY - LEFT KNEE REASON FOR EXAM: Female, 25 years old. KNEE PAIN. PAIN IN KNEES ALONG BOTH SIDES AND ANTERIOR AT LEVEL OF PATELLA. NO KNOWN INJURY. TECHNIQUE: 4 view(s) of the knee. COMPARISON: None. FINDINGS: Normal visualized distal femur. Normal visualized proximal tibia and fibula. Normal proximal tibiofibular articulation. There is no demonstrated fracture. Normal medial femorotibial compartment. Normal lateral femorotibial compartment. Normal patellofemoral articulation. There is no demonstrated joint effusion. The soft tissue structures are unremarkable. RAD/Knee 4 or More Views IMPRESSION: Normal x-ray examination of the knee. Electronically Signed: Jonnie Rodriguez MD at 23:59 EST , Service support ,
--- NOTE | 2020-09-27 16:25 | RAD_ITS ---
STUDY: X-RAY - RIGHT KNEE REASON FOR EXAM: Female, 25 years old. PAIN ALONG BOTH SIDES OF KNEE AND ANTERIOR AT LEVEL OF PATELLA. NO KNOWN INJURY TECHNIQUE: 4 view(s) of the knee. COMPARISON: None. FINDINGS: Normal visualized distal femur. Normal visualized proximal tibia and fibula. Normal proximal tibiofibular articulation. There is no demonstrated fracture. Normal medial femorotibial compartment. Normal lateral femorotibial compartment. Normal patellofemoral articulation. There is no demonstrated joint effusion. The soft tissue structures are unremarkable. RAD/Knee 4 or More Views IMPRESSION: Normal x-ray examination of the knee. Electronically Signed: Jonnie Rodriguez MD at 23:58 EST , Service support ,
== END ==
PROVIDERS: Referring Provider Anesthesiology Pain Medicine; Visit Provider Anesthesiology Pain Medicine
DX: M25.561 Pain in right knee (principal); M25.562 Pain in left knee
CPT/HCPCS: 73564

== ENCOUNTER 2022-02-12 14:28 | Outpatient (CLI) | payer MEDICAID, SELFPAY ==
--- NOTE | 2022-02-12 14:40 | RAD_ITS ---
STUDY: X-RAY - CERVICAL SPINE REASON FOR EXAM: Female, 26 years old. CERVICALGIA TECHNIQUE: 3 view(s) of the cervical spine were obtained. COMPARISON: None FINDINGS: Normal anterior atlantoaxial articulation. Normal odontoid process. Normal cervical lordosis. Normal vertebral bodies and endplates. Normal disc space heights. The soft tissue structures are unremarkable. RAD/Cerv Spine 2 or 3 Views IMPRESSION: Normal x-ray examination of the visualized cervical spine. Electronically Signed: Darryl Tejada MD at 22:57 EDT ,
== END 2022-02-12 23:59 | disposition home or self-care (01) ==
LOC: RAD 14:32
PROVIDERS: Referring Provider Anesthesiology Pain Medicine; Visit Provider Anesthesiology Pain Medicine
DX: M54.2 Cervicalgia (principal)
CPT/HCPCS: 72040

== ENCOUNTER → 2022-03-01 | Outpatient (CLI) | payer MEDICAID, SELFPAY ==
[2022-03-01 12:26] LABS: Absolute Lymphocyte Count 3.06 X10^3/uL (0.83-4.51); Absolute Neutrophil Count 6.1 X10^3/uL (2.0-7.7); Basophil# 0.05 X10^3/uL; Basophil% 0.5 % (0-1); Eosinophil# 0.09 X10^3/uL; Eosinophils% 0.9 % (0-5); Hematocrit 40.1 % (37-47); Hemoglobin 13.2 g/dL (12.0-15.0); Lymphocyte # 3.06 X10^3/ul (0.83-4.51); Lymphocyte % 31.3 % (19-41); Mean Corp Hgb Conc 32.9 g/dL (32-36); Mean Corpuscular Hgb 28.3 pg (27.0-32.0); Mean Corpuscular Volume 86.1 fL (81-99); Mean Platelet Vol. 9.5 fl (6.2-12.0); Monocyte# 0.42 X10^3/uL; Monocyte% 4.3 % (0-10); NRBC Flagged by Analyzer 0 % (0-5); Neutrophil # 6.11 X10^3/uL (2.7-7.7); Neutrophil % 62.5 % (47-70); Platelet Count 330 K/mm3 (150-450); RBC Distribution Width CV 14.2 % (11.6-14.6); RBC Distribution Width SD 44.8 fl (35.1-43.9); Red Blood Count 4.66 M/mm3 (4.2-5.4); White Blood Count 9.8 K/mm3 (4.4-11.0)
[2022-03-01 13:00] LABS: Vitamin B12 511 pg/mL (211-911); Vitamin D,25 Hydroxy 39.9 ng/mL
[2022-03-01 13:22] LABS: ALB/GLOB Ratio 1.1 RATIO (0.9-2.4); AST(SGOT) 15 U/L (15-37); Alanine Aminotransfer ALT/SGPT 25 U/L (13-56); Albumin, Serum 3.9 g/dL (3.2-5.0); Alkaline Phosphatase 104 U/L (45-117); Anion Gap 4 (5-15); BUN 12 mg/dL (7-18); BUN/Creat Ratio 14.4 RATIO (10-20); Chloride 108 mmol/L (98-107); Cholesterol 141 mg/dL (200); Creatinine, Serum 0.84 mg/dL (0.55-1.02); EST Glomerular Filtration Rate 88 mL/min (>60); Est Glom Filt Rate - Afr Amer 106 mL/min (>60); Globulin 3.7 g/dL (2.2-4.2); Glucose 90 mg/dL (74-106); High Density Lipoprotein 51 mg/dL; Potassium 4.2 mmol/L (3.5-5.1); Protein, Total 7.6 g/dL (6.4-8.2); Sodium Level 137 mmol/L (136-145); T4 Free Direct 1.01 ng/dL (0.76-1.46); Thyroid Stim Hormone (TSH) 1.14 uIU/mL (0.358-3.74); Triglycerides 56 mg/dL; Very Low Density Lipoprotein 11 mg/dL (5-40)
== END | disposition home or self-care (01) ==
PROVIDERS: Referring Provider Registered Nurse; Visit Provider Registered Nurse
DX: F31.32 Bipolar disorder, current episode depressed, moderate (principal); F41.1 Generalized anxiety disorder
CPT/HCPCS: 80053; 80061; 82306; 82607; 82746; 83036; 84439; 84443; 85025

== ENCOUNTER → 2022-04-01 | Outpatient (CLI) | payer MEDICAID, SELFPAY ==
[2022-04-02 21:08] LABS: Chlamydia By Nucleic Acid AMP Negative (Negative)
[2022-04-03 10:30] LABS: Gonococcus By Nucleic Acid AMP Negative (Negative)
[2022-04-05 16:10] LABS: HPV Reflexed? NOT INDICATED
== END | disposition home or self-care (01) ==
LOC: LABSPEC 04-02 09:40
PROVIDERS: Referring Provider Nurse Practitioner Women's Health; Visit Provider Nurse Practitioner Women's Health
DX: Z11.3 Encounter for screening for infections with a predominantly sexual mode of transmission (principal); Z12.4 Encounter for screening for malignant neoplasm of cervix
CPT/HCPCS: 87491; 87591; 88175; G0145

== ENCOUNTER → 2022-08-06 | Outpatient (CLI) | payer MEDICAID, SELFPAY ==
[2022-08-08 21:06] LABS: Chlamydia By Nucleic Acid AMP Positive (Negative)
[2022-08-09 09:00] LABS: Gonococcus By Nucleic Acid AMP Negative (Negative)
== END | disposition home or self-care (01) ==
LOC: LABSPEC 16:24
PROVIDERS: Visit Provider Registered Nurse
DX: Z20.2 Contact with and (suspected) exposure to infections with a predominantly sexual mode of transmission (principal); Z11.3 Encounter for screening for infections with a predominantly sexual mode of transmission
CPT/HCPCS: 87491; 87591

== ENCOUNTER → 2022-09-17 | Outpatient (CLI) | payer MEDICAID, SELFPAY ==
[2022-09-19 21:07] LABS: Chlamydia By Nucleic Acid AMP Negative (Negative)
[2022-09-20 15:11] LABS: Gonococcus By Nucleic Acid AMP Negative (Negative)
== END | disposition home or self-care (01) ==
LOC: LABSPEC 15:39
PROVIDERS: Visit Provider Nurse Practitioner Women's Health
DX: N39.0 Urinary tract infection, site not specified (principal); Z11.3 Encounter for screening for infections with a predominantly sexual mode of transmission
CPT/HCPCS: 87086; 87088; 87491; 87591

== ENCOUNTER 2024-11-13 16:01 | Emergency (ER) | payer MEDICAID, SELFPAY ==
[2024-11-13 16:03] VITALS: BP 128/97; PULSE 106; RESP 18; TEMP 39.5; O2SAT 99; BMI 40.3
--- NOTE | 2024-11-13 16:34 | EX.ED.DYSGE1 ---
HPI <DEJAH Lawton - Last Filed: 11/13/24 19:38> History of Present Illness Chief Complaint: Fever Narrative Narrative: Patient presenting today due to flulike symptoms that started yesterday. She has had fevers, chills, body aches, fatigue, nonproductive cough, sore throat, and nasal congestion. Her daughter has been sick with similar symptoms. She reports that she has been feeling short of breath with exertion over the past 2 days. She has not taken anything today for a fever. She denies any chronic medical conditions. PFSH <DEJAH Lawton - Last Filed: 11/13/24 19:38> [facility] Medical History HSV (herpes simplex virus) infection Home Medications ?Medication ?Instructions ?Recorded ?Last Taken ?Type lamotrigine 200 mg tablet 200 mg PO DAILY 04/01/22 Unknown History (Lamictal) escitalopram oxalate 10 mg tablet 10 mg PO DAILY 08/06/22 Unknown History (Lexapro) doxycycline hyclate 100 mg tablet 100 mg PO BID #14 tabs 08/09/22 Unknown Rx valacyclovir 500 mg tablet 500 mg PO BID 5 days #30 tabs 09/22/24 Unknown Rx doxycycline hyclate 100 mg capsule 100 mg PO BID #9 caps 11/13/24 Unknown Rx Allergy/AdvReac Type Severity Reaction Status Date / Time No Known Allergies Allergy Verified 11/13/24 16:03 Family History Grandfather Cancer lung- smoker Surgical History History of tonsillectomy Social History number of children: 1 Smoking Status: Current every day smoker tobacco type: cigarettes alcohol intake: never substance use type: does not use caffeine: Yes what type of physical activity do you participate in: none seatbelt use: always do you feel safe at home: Yes additional social history: single- unemployed ROS <DEJAH Lawton - Last Filed: 11/13/24 19:38> ROS ED Constitutional Constitutional ED: Reports chills and fever(s) ENT ENT ED: Reports rhinorrhea and sore throat Cardiovascular Cardiovascular: Denies chest pain Respiratory/Chest Respiratory/Chest: Reports cough and dyspnea on exertion; Denies wheezing Gastrointestinal Gastrointestinal: Denies abdominal pain, nausea or vomiting Musculoskeletal Musculoskeletal: Reports myalgias Integumentary Denies rash Neurologic Neurologic: Reports headache(s); Denies weakness EXAM <DEJAH Lawton - Last Filed: 11/13/24 19:38> Physical Exam Const Vital Signs: 11/13/24 16:03 11/13/24 18:07 11/13/24 18:20 Temperature 103.1 F H Temperature Source Oral Pulse Rate 106 H 98 Respiratory Rate 18 18 Respiratory Effort Short of Breath Respiratory Depth Normal Respiratory Pattern Normal Blood Pressure 128/97 H 117/88 H Blood Pressure Mean 107 97 Pulse Ox 99 98 Oxygen Delivery Method Room Air Room Air 11/13/24 18:53 Temperature 98.4 F Temperature Source Oral Pulse Rate Respiratory Rate Respiratory Effort Respiratory Depth Respiratory Pattern Blood Pressure Blood Pressure Mean Pulse Ox Oxygen Delivery Method Positive well nourished, well developed and no apparent distress General Appearance ED: well developed HEENT Reports normocephalic, head/scalp atraumatic and TM's clear Tympanic Membrane ED: Yes TM's clear bilateral Mouth ED: Yes moist mucous membranes normal Throat: posterior oropharynx normal, tonsils normal and uvula midline Eyes PERRL and EOMs intact bilaterally Neck full ROM and supple Neck Narrative: No meningeal signs Chest Wall inspection of chest normal Resp normal respiratory effort and clear to auscultation bilaterally Cardio regular rate and regular rhythm Back/Spine normal ROM and normal to inspection Extremity normal to inspection and full ROM Neuro oriented x3, CN's II-XII intact bilaterally, moves all extremities, no focal motor deficits and no sensory deficits noted Sensorium / Orientation: awake and alert Psych mental status grossly normal and thought process normal Skin no rashes or lesions noted and no wounds <Sridhar Barakat MD - Last Filed: 11/13/24 21:44> Physical Exam Const Vital Signs: 11/13/24 16:03 11/13/24 18:07 11/13/24 18:20 Temperature 103.1 F H Temperature Source Oral Pulse Rate 106 H 98 Respiratory Rate 18 18 Respiratory Effort Short of Breath Respiratory Depth Normal Respiratory Pattern Normal Blood Pressure 128/97 H 117/88 H Blood Pressure Mean 107 97 Pulse Ox 99 98 Oxygen Delivery Method Room Air Room Air 11/13/24 18:53 Temperature 98.4 F Temperature Source Oral Pulse Rate Respiratory Rate Respiratory Effort Respiratory Depth Respiratory Pattern Blood Pressure Blood Pressure Mean Pulse Ox Oxygen Delivery Method [facility] <DEJAH Lawton - Last Filed: 11/13/24 19:38> [facility] Narrative Medical decision making narrative: Patient presenting with flulike symptoms that started yesterday. She is nontoxic-appearing. Clinically she does not appear dehydrated, she is tolerating p.o. fluids in the room. She does have a temperature of 103.1 ?F, she is slightly tachycardic at 106 bpm. She has not yet had anything today for fever, she will be given ibuprofen. She is positive for influenza A,, chest x-ray also shows left lower lobe pneumonia possibly early right lower lobe pneumonia. She is within the window for Tamiflu, I did offer to start this treatment and she declined. Given the pneumonia on her chest x-ray, we will cover her with antibiotics, she was given first dose of doxycycline here. Repeat vitals are improved, her temperature did improve to 98.4 ?F. Given she is not hypoxic and her fevers are well-controlled, I do feel she can be discharged home. Supportive care measures were discussed. I recommended she follow-up with her PCP and return instructions given. Patient discharged home in stable condition. Radiography X-Ray: Read by ED Physician Diagnostic Testing: Clinical Impression(s) from Imaging Studies Chest X-Ray 11/13/24 16:36 IMPRESSION: Lungs consistent with left lower lobe pneumonia and possible early right lower lobe infiltrate. Electronically Signed: Darryl Tejada MD at 17:12 EST , <Sridhar Barakat MD - Last Filed: 11/13/24 21:44> [facility] Narrative Medical decision making narrative: Patient presenting with flulike symptoms that started yesterday. She is nontoxic-appearing. Clinically she does not appear dehydrated, she is tolerating p.o. fluids in the room. She does have a temperature of 103.1 ?F, she is slightly tachycardic at 106 bpm. She has not yet had anything today for fever, she will be given ibuprofen. She is positive for influenza A,, chest x-ray also shows left lower lobe pneumonia possibly early right lower lobe pneumonia. She is within the window for Tamiflu, I did offer to start this treatment and she declined. Given the pneumonia on her chest x-ray, we will cover her with antibiotics, she was given first dose of doxycycline here. Repeat vitals are improved, her temperature did improve to 98.4 ?F. Given she is not hypoxic and her fevers are well-controlled, I do feel she can be discharged home. Supportive care measures were discussed. I recommended she follow-up with her PCP and return instructions given. Patient discharged home in stable condition. Dr. Barakat: I have personally performed a face to face assessment of the patient and have reviewed the [facility] Note. I performed a substantive portion of the visit including all aspects of the following. My collazo findings include: History is upper respiratory infection type symptoms including headache. Exam is febrile. Nontoxic-appearing. Regular rate and rhythm. Lungs clear to auscultation bilaterally. Abdomen soft nontender. Neurological examination nonfocal and nonlateralizing. Medical Decision Making: Check respiratory swab. Check chest x-ray. On my independent interpretation there may be a left lower lobe infiltrate. I reviewed the radiology report which confirms my independent interpretation and discussed that there is a possibility of a right lower lobe pneumonia beginning. She is also positive for influenza A. Through shared decision making, patient decided not to take Tamiflu but excepted a prescription for antibiotics should this be more of a bacterial pneumonia. I feel she can be discharged safely home with follow-up. Return instructions reviewed. Disposition is discharged home in stable condition. Other additions or changes: [None] Radiography Diagnostic Testing: Clinical Impression(s) from Imaging Studies Chest X-Ray 11/13/24 16:36 IMPRESSION: Lungs consistent with left lower lobe pneumonia and possible early right lower lobe infiltrate. Electronically Signed: Darryl Tejada MD at 17:12 EST Reading Location ID and State: [facility] / [place] Tel , Service support , Discharge Plan Triage Chief Complaint: Fever Other Complaint: Cough ED Midlevel Provider: Yanira Zimmerman ED Provider: Sridhar Barakat Dx/Rx/DC Orders Clinical Impression: Influenza A, Pneumonia Instructions: ED Influenza (Adult), ED Pneumonia (Adult) Prescriptions: New doxycycline hyclate 100 mg capsule 100 mg PO BID Qty: 9 0RF No Action lamotrigine [Lamictal] 200 mg tablet 200 mg PO DAILY escitalopram oxalate [Lexapro] 10 mg tablet 10 mg PO DAILY doxycycline hyclate 100 mg tablet 100 mg PO BID Qty: 14 0RF valacyclovir 500 mg tablet 500 mg PO BID 5 Days Qty: 30 6RF Stand Alone Forms: ED Work / School Excuse Primary Care Provider: Care Physician,No Primary Referrals: Care Physician,No Primary [Primary Care Provider] - Activity Restrictions/Additional Instructions: Follow-up with your PCP, return for any worsening of symptoms. Alternate Tylenol and ibuprofen as needed for fevers. Stay well-hydrated. Print Language: Italian Disposition Disposition: Home, Self Care Discharge Date/Time: 11/13/24 18:54
--- NOTE | 2024-11-13 16:36 | RAD_ITS ---
STUDY: X-RAY CHEST REASON FOR EXAM: Female, 29 years old. cough, fever TECHNIQUE: PA and lateral COMPARISON: November 13, 2015 FINDINGS: There is left lower lobe pneumonic infiltrate and mild interstitial thickening in right lower lobe possibly also inflammatory.. There is no demonstrated pleural abnormality. Normal size heart. Normal mediastinum and jeremi. Normal visualized pulmonary arteries. Normal visualized aortic arch and descending thoracic aorta. Normal visualized thoracic spine. Normal visualized ribs, clavicles, and shoulders. There is no demonstrated abnormality of the visualized soft tissue structures of the upper abdomen. RAD/Chest PA and Lateral IMPRESSION: Lungs consistent with left lower lobe pneumonia and possible early right lower lobe infiltrate. Electronically Signed: Darryl Tejada MD at 17:12 EST ,
[2024-11-13] MEDS: Ibuprofen 600 MG Tablet PO (17:05)
[2024-11-13 18:07] VITALS: BP 117/88; PULSE 98; RESP 18; O2SAT 98
[2024-11-13] MEDS: Doxycycline 100 MG CAPSULE PO (18:50)
[2024-11-13 18:53] VITALS: TEMP 36.9
== END 2024-11-13 18:54 | disposition home or self-care (01) ==
PROVIDERS: Emergency Provider Emergency Medicine; Visit Provider Emergency Medicine
DX: J10.00 Influenza due to other identified influenza virus with unspecified type of pneumonia (principal); J18.9 Pneumonia, unspecified organism; F17.210 Nicotine dependence, cigarettes, uncomplicated
CPT/HCPCS: 71046; 87631; 99283